=== PATIENT | female | born 1955 | race Caucasian/White ===

== ENCOUNTER 2021-11-17 19:18 | Inpatient (IN) | payer MEDICARE, OTHER ==
[~2021-11-17] VITALS: Ht 165.1 cm; Wt 80.0 kg
[2021-11-17] MEDS: SODIUM CHLORIDE 0.9% 1,000 ML IV SCH (04:00)
[2021-11-17] MEDS ORDERED: EPINEPHrine HCL 0.5 ML NEB ONE (19:27)
[2021-11-17] MEDS ORDERED: diphenhdrAMINE HCL 50 MG/1 ML VL IV ONE (19:30)
[2021-11-17] MEDS ORDERED: methylPREDNISolone SOD SUCC 125 MG/2 ML VL IV ONE (19:30)
[2021-11-17] MEDS ORDERED: SODIUM CHLORIDE 0.9% 1,000 ML IV ONE (19:30)
[2021-11-17] MEDS ORDERED: EPINEPHrine HCL 0.5 ML NEB NEB ONE (19:30)
[2021-11-17 20:20] LABS: Basophils # (auto) 0 10 ^3/uL (0-0.2); Basophils % (auto) 0.3 % (0.0-2.0); Eosinophils # (auto) 0.1 10 ^3/uL (0-0.8); Eosinophils % (auto) 0.6 % (0.0-7.0); Hematocrit 47.8 % (36.0-46.0); Hemoglobin 16.4 g/dL (12.2-16.2); Lymphocytes # (auto) 4.6 10 ^3/uL (0.4-5.4); Mean Corpuscular Hemoglobin 30.2 pg (28.0-32.0); Mean Corpuscular Hgb Conc. 34.3 g/dL (32.0-36.0); Mean Corpuscular Volume 88.1 fL (80.0-100.0); Monocytes # (auto) 0.4 10 ^3/uL (0-1.3); Monocytes % (auto) 3.2 % (0.0-12.0); Neutrophils # (auto) 8.4 10 ^3/uL (1.6-8.6); Neutrophils % (auto) 61.9 % (37.0-80.0); Nucleated Red Blood Cells % 0.2 %; Red Blood Cells 5.42 10^6/uL (4.0-5.20); Red Cell Distribution Width 14.2 % (11.8-14.3); White Blood Cell 13.6 10^3/uL (4.4-10.8)
[2021-11-17 20:35] LABS: Albumin 3.4 g/dL (3.4-5.0)
[2021-11-17 20:46] LABS: BUN/Creatinine Ratio 15.4; Bilirubin, Total 0.3 mg/dL (0.2-1.0); Total Protein 6.7 g/dL (6.4-8.2)
[2021-11-17] MEDS ORDERED: ALPRAZolam 0.25 MG TAB PO SCH (22:00)
[2021-11-17] MEDS ORDERED: diphenhdrAMINE HCL 50 MG/1 ML VL IV PRN (22:00)
[2021-11-17] MEDS ORDERED: diphenhdrAMINE HCL 25 MG CAP PO PRN (22:00)
[2021-11-17] MEDS ORDERED: FAMOTIDINE (10MG/ML) 2ML VL IV ONE (22:00)
[2021-11-17] MEDS ORDERED: MONTELUKAST SODIUM 10 MG TAB PO ONE (22:00)
[2021-11-17] MEDS ORDERED: EPINEPHrine HCL 1 MG/1 ML AMP SC ONE (22:00)
[2021-11-17] MEDS ORDERED: POTASSIUM EFFERVESENT TAB 25 MEQ PO ONE (22:15)
[2021-11-17] MEDS ORDERED: ALBUTEROL SULF 2.5 MG/0.5ML(0.5%) NEB SOLN NEB PRN (22:15)
[2021-11-17] MEDS ORDERED: ACETAMINOPHEN 325 MG TAB PO PRN (22:15)
[2021-11-17] MEDS ORDERED: ONDANSETRON HCL 4 MG/2 ML VIAL IV PRN (22:15)
[2021-11-17] MEDS: methylPREDNISolone SOD SUCC 125 MG/2 ML VL IV SCH (23:26)
[2021-11-17] MEDS: POTASSIUM CHL 20MEQ/100ML 100 ML IV SCH (23:27)
[2021-11-17 23:38] LABS: Urine Bacteria None Seen /hpf (None Seen); Urine WBC None Seen /hpf (0 - 5)
[2021-11-17 23:45] VITALS: BP 101/52
[2021-11-18] MEDS ORDERED: HEPARIN SODIUM (PORCINE) 5000 UNITS/ML 1ML VIAL SC ONE (00:30)
[2021-11-18] MEDS ORDERED: ASPirin 325 MG TAB PO ONE ×2 (00:30→01:00)
[2021-11-18 00:40] LABS: Urine Blood 3+ /uL (Negative)
[2021-11-18 00:41] LABS: Urine Specific Gravity 1.026 (1.001-1.035)
[2021-11-18] MEDS ORDERED: ENOXAPARIN SOD 100 MG/1 ML SYRINGE SC SCH (01:00)
[2021-11-18] MEDS: ALPRAZolam 0.25 MG TAB PO SCH ×2 (01:00→22:31)
[2021-11-18] MEDS: CARVEDILOL 3.125 MG TAB PO SCH ×2 (01:00→09:49)
[2021-11-18] MEDS: POTASSIUM CHL 20MEQ/100ML 100 ML IV SCH (02:16)
[2021-11-18 06:23] LABS: Basophils # (auto) 0.1 10 ^3/uL (0-0.2); Basophils % (auto) 0.7 % (0.0-2.0); Eosinophils # (auto) 0 10 ^3/uL (0-0.8); Hematocrit 40.4 % (36.0-46.0); Lymphocytes % (auto) 5.6 % (10.0-50.0); Mean Corpuscular Hemoglobin 30.8 pg (28.0-32.0); Mean Corpuscular Hgb Conc. 34.7 g/dL (32.0-36.0); Mean Corpuscular Volume 88.7 fL (80.0-100.0); Monocytes # (auto) 0.2 10 ^3/uL (0-1.3); Monocytes % (auto) 0.9 % (0.0-12.0); Neutrophils # (auto) 16.2 10 ^3/uL (1.6-8.6); Neutrophils % (auto) 92.8 % (37.0-80.0); Red Blood Cells 4.55 10^6/uL (4.0-5.20); White Blood Cell 17.5 10^3/uL (4.4-10.8)
[2021-11-18 06:29] LABS: Albumin 2.8 g/dL (3.4-5.0); Calcium 8.2 mg/dL (8.5-10.1); Potassium 4.2 mmol/L (3.5-5.1)
[2021-11-18 06:33] LABS: Bilirubin, Total 0.2 mg/dL (0.2-1.0); Total Protein 5.8 g/dL (6.4-8.2)
[2021-11-18] MEDS: SODIUM CHLORIDE 0.9% 1,000 ML IV SCH ×3 (06:35→23:15)
[2021-11-18] MEDS: methylPREDNISolone SOD SUCC 125 MG/2 ML VL IV SCH (07:36)
[2021-11-18] MEDS: NICOTINE 21MG/24 HR TOPICAL PATCH TD SCH ×2 (09:47→09:50)
[2021-11-18] MEDS: ASPirin 81 mg TAB PO SCH ×2 (09:47→09:50)
[2021-11-18] MEDS: FAMOTIDINE 20 MG TAB PO SCH (09:47)
[2021-11-18] MEDS ORDERED: ENOXAPARIN SOD 40 MG/0.4 ML SYRINGE SC SCH (10:00)
[2021-11-18] MEDS ORDERED: levoFLOXacin 500MG 100 ML IV ONE (12:00)
[2021-11-18] MEDS: ENOXAPARIN SOD 80 MG/0.8ML SYRINGE SC SCH (13:23)
[2021-11-18] MEDS: methylPREDNISolone SOD SUCC 40 MG/ML VL IV SCH ×2 (14:40→22:29)
[2021-11-18] MEDS ORDERED: METO-289 PO (14:59)
[2021-11-18] MEDS ORDERED: IBUP800T27 PO (14:59)
[2021-11-18] MEDS ORDERED: LOSA-69 PO (14:59)
[2021-11-18] MEDS ORDERED: ALPR0.25 PO (14:59)
[2021-11-18 16:32] VITALS: BP 147/78
[2021-11-18 21:51] VITALS: BP 144/78
[2021-11-18] MEDS ORDERED: ATORVASTATIN 20 MG TAB PO SCH (22:00)
[2021-11-18] MEDS: LOSARTAN POTASSIUM 50 MG TAB PO SCH (22:29)
[2021-11-18] MEDS: MONTELUKAST SODIUM 10 MG TAB PO SCH (22:30)
[2021-11-18] MEDS: METOPROLOL TARTRATE 50 MG TAB PO SCH (22:30)
[2021-11-19] MEDS: ENOXAPARIN SOD 80 MG/0.8ML SYRINGE SC SCH (03:07)
[2021-11-19 04:51] VITALS: BP 139/64
[2021-11-19] MEDS ORDERED: methylPREDNISolone SOD SUCC 40 MG/ML VL ONE (06:12)
[2021-11-19] MEDS: methylPREDNISolone SOD SUCC 40 MG/ML VL IV SCH (06:27)
[2021-11-19] MEDS: SODIUM CHLORIDE 0.9% 1,000 ML IV SCH (07:35)
[2021-11-19 09:00] VITALS: BP 118/79
[2021-11-19] MEDS: FAMOTIDINE 20 MG TAB PO SCH (10:00)
[2021-11-19 11:14] VITALS: BP 145/68
[2021-11-19] MEDS: METOPROLOL TARTRATE 50 MG TAB PO SCH ×2 (11:17→21:36)
[2021-11-19] MEDS: predniSONE 20 MG TAB PO SCH (11:17)
[2021-11-19] MEDS: NICOTINE 21MG/24 HR TOPICAL PATCH TD SCH (11:17)
[2021-11-19] MEDS: levoFLOXacin 500MG 100 ML IV SCH (11:17)
[2021-11-19] MEDS: ASPirin 81 mg TAB PO SCH (11:17)
[2021-11-19] MEDS: LOSARTAN POTASSIUM 50 MG TAB PO SCH ×2 (11:17→21:36)
[2021-11-19 13:00] VITALS: BP 149/78
[2021-11-19 17:00] VITALS: BP 167/75
[2021-11-19] MEDS: MONTELUKAST SODIUM 10 MG TAB PO SCH (21:35)
[2021-11-19] MEDS: ALPRAZolam 0.25 MG TAB PO SCH (21:35)
[2021-11-19 22:00] VITALS: BP 168/79
[2021-11-20 05:00] VITALS: BP 158/73
[2021-11-20 09:00] VITALS: BP 130/77
[2021-11-20] MEDS ORDERED: LEVO500T31 PO (09:33)
[2021-11-20] MEDS ORDERED: NIC21P TOP (09:47)
[2021-11-20] MEDS: levoFLOXacin 500MG 100 ML IV SCH (09:58)
[2021-11-20] MEDS: ASPirin 81 mg TAB PO SCH (09:59)
[2021-11-20] MEDS: predniSONE 20 MG TAB PO SCH (10:00)
[2021-11-20] MEDS: LOSARTAN POTASSIUM 50 MG TAB PO SCH (10:00)
[2021-11-20] MEDS: METOPROLOL TARTRATE 50 MG TAB PO SCH (10:01)
[2021-11-20] MEDS: NICOTINE 21MG/24 HR TOPICAL PATCH TD SCH (10:01)
[2021-11-20] MEDS ORDERED: TRIATAB3 PO (10:03)
[2021-11-20] MEDS ORDERED: ATOR20TA50 PO (10:03)
[2021-11-20 13:24] VITALS: BP 154/78
[2021-11-20 14:15] VITALS: BP 130/77
== END 2021-11-20 15:30 | disposition home or self-care (01) | DRG 871 ==
LOC: ER 19:18 → EDBD 19:18 → OVERFLOW 22:12 → TELE-CENTR 11-18 14:14
PROVIDERS: ADMIT Internal Medicine; ATTEND Family Medicine
DX: A41.9 Sepsis, unspecified organism (principal); J96.01 Acute respiratory failure with hypoxia; I21.4 Non-ST elevation (NSTEMI) myocardial infarction; N39.0 Urinary tract infection, site not specified; T88.6XXA Anaphylactic reaction due to adverse effect of correct drug or medicament properly administered, initial encounter; E78.00 Pure hypercholesterolemia, unspecified; E78.5 Hyperlipidemia, unspecified; E88.09 Other disorders of plasma-protein metabolism, not elsewhere classified; F17.200 Nicotine dependence, unspecified, uncomplicated; E11.65 Type 2 diabetes mellitus with hyperglycemia; E87.6 Hypokalemia; Y84.8 Other medical procedures as the cause of abnormal reaction of the patient, or of later complication, without mention of misadventure at the time of the procedure; Z20.822 Contact with and (suspected) exposure to COVID-19; I10 Essential (primary) hypertension; T36.1X5A Adverse effect of cephalosporins and other beta-lactam antibiotics, initial encounter; Z82.49 Family history of ischemic heart disease and other diseases of the circulatory system; Z83.3 Family history of diabetes mellitus; Z87.892 Personal history of anaphylaxis; Z71.6 Tobacco abuse counseling; Y92.89 Other specified places as the place of occurrence of the external cause; Z88.8 Allergy status to other drugs, medicaments and biological substances; Z88.1 Allergy status to other antibiotic agents
CPT/HCPCS: 36415; 71045; 80053; 81001; 83036; 83880; 84484; 85025; 86160; 87040; 87086; 93005; 93306; 94640; 96361; 96365; 96372; 96375; G0378; J0171; J1956; J2405; J3480; J3490